=== PATIENT | male | born 1995 | race Caucasian/White ===

== ENCOUNTER 2016-10-08 14:25 | Emergency (ER) | payer MEDICAID ==
[~2016-10-08] VITALS: Ht 165.1 cm; Wt 53.1 kg
[2016-10-08 14:37] VITALS: BP 129/78
--- NOTE | 2016-10-08 15:35 | NUR ---
Patient ambulated to bed 7. RN evaluating patient at bedside.
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
--- NOTE | 2016-10-08 16:05 | NUR ---
SEEN AND EVALUATED BY DR DE JESUS AT BEDSIDE.
[2016-10-08 16:28] VITALS: BP 121/68
--- NOTE | 2016-10-08 16:28 | NUR ---
Patient discharged with v/s stable. Written and verbal after care instructions given and explained. Patient verbalized understanding. Ambulatory with steady gait. All questions addressed prior to discharge. Advised to follow up with PMD.
[2016-10-11 08:01] LABS: CHLAMYDIA TRACHOMATIS AMP DNA NEGATIVE (NEGATIVE)
== END 2016-10-08 16:28 | disposition home or self-care (01) ==
LOC: MED 14:25
DX: Z11.3 Encounter for screening for infections with a predominantly sexual mode of transmission (principal)
CPT/HCPCS: 36415; 81002; 87491; 99284

== ENCOUNTER 2018-10-02 01:00 | Emergency (ER) | payer SELFPAY ==
[~2018-10-02] VITALS: Ht 165.1 cm; Wt 59.0 kg
[2018-10-02 01:10] VITALS: BP 150/100
--- NOTE | 2018-10-02 01:10 | NUR ---
PT TAKEN TO BED 3
[2018-10-02] MEDS ORDERED: ONDANSETRON 4 MG ODT PO ONE (01:15)
[2018-10-02] MEDS ORDERED: NACL 0.9% 1,000 ML IV ONE ×2 (01:20→02:35)
[2018-10-02] MEDS ORDERED: ONDANSETRON 4 MG/2 ML VIAL IVP ONE (01:20)
--- NOTE | 2018-10-02 01:25 | NUR ---
EKG PERFORMED AT BEDSIDE
--- NOTE | 2018-10-02 01:40 | NUR ---
22 Y/O MALE BIB SELF C/O FEELING PALIPITATIONS, 02/21 LLQ ABD PAIN, NAUSEA WITHOUT VOMITING, SHAKY X10 HRS. PT STATES DRINKING 10 CANS OF BEER AT 15:00. HR 130. PMH: NPNE RX: NONE ALLERGIES: NONE
--- NOTE | 2018-10-02 01:48 | NUR ---
Dr. Mauro examining patient.
--- NOTE | 2018-10-02 03:27 | NUR ---
Patient discharged with v/s stable. Written and verbal after care instructions given and explained. Patient alert, oriented and verbalized understanding of instructions. Ambulatory with steady gait. All questions addressed prior to discharge. ID band removed. Patient advised to follow up with PMD. Rx of ZOFRAN 8MG given. Patient educated on indication of medication including possible reaction and side effects. Opportunity to ask questions provided and answered.
[2018-10-02 03:28] VITALS: BP 137/96
== END 2018-10-02 03:27 | disposition home or self-care (01) ==
LOC: MED 01:00
DX: E86.0 Dehydration (principal); R00.2 Palpitations
CPT/HCPCS: 93005; 96361; 96374; 99283; J2405; J7030